=== PATIENT | male | born 1975 | race Caucasian/White ===

== ENCOUNTER 2025-04-10 07:34 | Outpatient (OUT) | payer OTHER, SELFPAY ==
[2025-04-10 08:16] LABS: Estimated Average Glucose 117 mg/dL; Glycohemoglobin A1C 5.7 % (4.5-6.2)
[2025-04-10 08:39] LABS: Basophils Absolute Auto 0.1 10^3/uL (0.0-0.1); Basophils Percent Auto 1.4 % (0.2-2.0); Eosinophils Absolute Auto 0.2 10^3/uL (0.0-0.7); Eosinophils Percent Auto 4.1 % (0.9-7.0); Hematocrit 45.4 % (42.0-54.0); Hemoglobin 15.3 g/dL (14.0-18.0); Immature Granulocytes Abs Auto 0.01 10^3/uL (0.00-0.03); Immature Granulocytes Pct Auto 0.2 % (0.0-0.5); Lymphocytes Absolute Auto 1.9 10^3/uL (1.2-3.8); Lymphocytes Percent Auto 36.4 % (20.5-60.0); Mean Corpuscular HGB Conc 33.7 g/dL (29.9-35.2); Mean Corpuscular Hemoglobin 31.2 pg (25.9-34.0); Mean Corpuscular Volume 92.5 fL (80.0-94.0); Mean Platelet Volume 10.6 fL (9.5-13.5); Monocytes Absolute Auto 0.5 10^3/uL (0.3-0.8); Monocytes Percent Auto 8.9 % (1.7-12.0); Neutrophils Absolute Auto 2.5 10^3/uL (1.4-6.5); Platelet Count 223 10^3/uL (150-450); Red Blood Count 4.91 10^6/uL (4.70-6.10); Red Cell Distribution Width 12.2 % (11.0-15.0); White Blood Count 5.2 10^3/uL (4.0-11.0)
[2025-04-10 09:06] LABS: Prostate Specific Antigen Scrn 0.76 ng/mL (<=4.00)
[2025-04-10 09:07] LABS: Alanine Aminotransferase 57 U/L (16-63); Albumin Globulin Ratio 1.1; Albumin Level 3.8 g/dL (3.4-5.0); Alkaline Phosphatase 112 U/L (46-116); Anion Gap 14.1; Aspartate Amino Transferase 20 U/L (15-37); BUN Creatinine Ratio 14.4; Bilirubin Total 0.5 mg/dL (0.2-1.0); Calcium 9.2 mg/dL (8.5-10.1); Carbon Dioxide 27.9 mmol/L (21.0-32.0); Chloride 104 mmol/L (98-107); Chol HDL Ratio 3.4; Cholesterol 155 mg/dL (<=200); Estimated GFR (African America >60 (>=60 mL/min/1.73m^2); Estimated GFR (Non-African Ame >60 (>=60 mL/min/1.73m^2); Free T3 2.92 pg/mL (2.18-3.98); Globulin 3.4 g/dL; Glucose 112 mg/dL (74-106); HDL Cholesterol 46 mg/dL (40-60); LDL Cholesterol Calculated 86.2 mg/dL; Sodium 142 mmol/L (136-145); Thyroid Stimulating Hormone 1.181 uIU/mL (0.358-3.740); Total Protein 7.2 g/dL (6.4-8.2); Triglycerides 114 mg/dL (<=150); VLDL CHOLESTEROL 22.8 mg/dL
[2025-04-10 13:04] LABS: Internal Control Within Normal Limits; Occult Blood Negative
== END 2025-04-10 07:35 | disposition home or self-care (01) ==
LOC: LAB 07:40
PROVIDERS: PCP Family Medicine; Visit Provider Family Medicine
DX: Z00.00 Encounter for general adult medical examination without abnormal findings (principal); R73.09 Other abnormal glucose; R53.83 Other fatigue; Z12.5 Encounter for screening for malignant neoplasm of prostate
CPT/HCPCS: 36415; 80053; 80061; 83036; 84436; 84443; 84481; 85025; G0103; G0328